=== PATIENT | male | born 1990 | race Caucasian/White ===

== ENCOUNTER 2020-10-20 21:08 | Emergency (ER) | payer OTHER ==
[~2020-10-20] VITALS: Ht 175.3 cm; Wt 86.2 kg
[2020-10-20] MEDS ORDERED: HYDROCODON-ACE1 EA11 (21:14)
[2020-10-20] MEDS ORDERED: FLEXERIL PO (21:14)
[2020-10-20 21:43] LABS: ABSOLUTE NEUTROPHILS 4.2 thou/uL (1.4-8.2); BASOPHILS 0.5 % (0.0-2.0); EOSINOPHILS 0.6 % (0.0-3.0); HEMATOCRIT 45.7 % (42.0-52.0); HEMOGLOBIN 15.4 gm/dL (14.0-18.0); LYMPHOCYTES 45.1 % (24.0-44.0); MCH 30.1 pg (26.0-34.0); MCHC 33.7 g/dL (28.0-37.0); MCV 89.3 fL (80.0-100.0); MONOCYTES 4.3 % (1.0-8.0); PLATELET COUNT 241 thou/uL (150-400); POLYS 49.5 % (36.0-66.0); RBC 5.12 mil/uL (4.50-6.00); RDW 13.9 % (10.5-14.5); WBC 8.4 thou/uL (4.0-11.0)
[2020-10-20 21:51] LABS: ANION GAP 9 mmol/L (7-16); BUN 13 mg/dL (7-18); CALCIUM 9.4 mg/dL (8.5-10.1); CHLORIDE 102 mmol/L (98-107); CO2 26 mmol/L (21-32); CREATININE 1.2 mg/dL (0.7-1.3); GLUCOSE 153 mg/dL (74-106); POTASSIUM 3.4 mmol/L (3.5-5.1); SODIUM 137 mmol/L (136-145)
[2020-10-20 21:57] LABS: MAGNESIUM 2.1 mg/dL (1.8-2.4); TROPONIN-I <0.06 ng/mL (<0.06)
[2020-10-20 22:59] VITALS: BP 158/98
--- NOTE | 2020-10-21 07:27 | EKG ---
[facility] [place] [address] ELECTROCARDIOGRAM REPORT Name: GIGI HENRIQUEZ [id number] Admission: 10/20/20 Attend Phys: Discharge: 10/20/20 Date of : [birth year] Report #: [id number] 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1990 Requested By: Carlos Crowder Order Number: [id number] MD: Luis Galloway Measurements Intervals [place] Rate: 130 P: 57 [place]: 160 QRS: -77 QRSD: 99 T: 69 QT: 295 QTc: 434 Interpretive Statements Sinus tachycardia LAE, consider biatrial enlargement RSR' in V1 or V2, probably normal variant No previous ECG available for comparison Electronically Signed On 10-21-2020 7:27:35 [employer] SPECIALIST by Luis Galloway [email or web address] <ELECTRONICALLY SIGNED> By: Luis Galloway MD, [facility] 10/21/20 0727 2107 06 Luis Galloway MD, FACC /EPI
--- NOTE | 2020-10-21 15:34 | EKG ---
[facility] [place] [address] ELECTROCARDIOGRAM REPORT Name: GIGI HENRIQUEZ Room #: DEP ABEL Grier#: [id number] Admission: 10/20/20 Attend Phys: Discharge: 10/20/20 Date of : [birth year] Report #: [id number] 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 : 1990 Requested By: Carlos Crowder Order Number: [id number] MD: Luis Galloway Measurements Intervals [place] Rate: 97 P: 54 [place]: 176 QRS: -41 QRSD: 104 T: 55 QT: 333 QTc: 423 Interpretive Statements Sinus rhythm Incomplete RBBB and LAFB RSR' in V1 or V2, right VCD or RVH J Point elev, probable normal early repol pattern Compared to ECG 10/20/2020 21:07:58 Left anterior fascicular block now present Incomplete right bundle-branch block now present Right bundle-branch block now present Right ventricular hypertrophy now present ST (T wave) deviation now present Sinus tachycardia no longer present Electronically Signed On 10-21-2020 15:34:01 B[employer] MACHINE by Luis Galloway [email or web address] <ELECTRONICALLY SIGNED> By: Luis Galloway MD, FACC 10/21/20 1534 99 99 Luis Galloway MD, FAC /EPI
== END 2020-10-20 23:00 | disposition home or self-care (01) ==
LOC: ER 21:08
PROVIDERS: Emergency Medicine
DX: R07.89 Other chest pain (principal); F17.210 Nicotine dependence, cigarettes, uncomplicated; Z79.899 Other long term (current) drug therapy